=== PATIENT | female | born 1990 | race Caucasian/White ===

== ENCOUNTER 2016-10-30 14:25 | Inpatient (IN) | payer BC ==
[2016-10-30] MEDS ORDERED: Sodium Chloride 0.9% 10 ML Syringe FLUSH PRN (16:31)
[2016-10-30] MEDS ORDERED: Ondansetron 4 MG/2 ML SDV IVPUSH PRN (16:31)
[2016-10-30] MEDS ORDERED: Oxytocin/Lactated Ringers 10 UNIT/1,000 ML BAG IV SCH ×2 (16:45→19:00)
[2016-10-30] MEDS: Lactated Ringers 1,000 ML IV SCH ×3 (19:28→21:48)
[2016-10-30] MEDS ORDERED: diphenhydrAMINE 50 MG/ML SDV IVPUSH PRN (20:27)
[2016-10-30] MEDS ORDERED: ePHEDrine 50 MG/ML SDV IVPUSH PRN (20:27)
[2016-10-30] MEDS ORDERED: fentaNYL 100 MCG/2 ML SDV EPIDUR PRN (20:27)
[2016-10-30] MEDS ORDERED: Bupivacaine/fentaNYL/NS 100 ML Bag EPIDUR SCH (20:30)
--- NOTE | 2016-10-30 20:33 | PCM.LDHP ---
L&D History of Present Illness - General Date of Service: 10/30/16 Admit Problem/Dx: Patient Status Order with Admit Dx/Problem 10/30/16 16:31 Patient Status [ADT] Routine Admission Diagnosis/Problem Admission Diagnosis/Problem 10/30/16 20:21 40-1/7 week intrauterine , spontaneous rupture of membranes, early labor Source of Information: Patient History Limitations: Reports: No Limitations - History of Present Illness Introduction:: History of present illness: Iveth is a 36-year-old 2 para 1001 white female at 40-1/7 weeks gestational age with an GABI of 10/29/2016 who was admitted to labor and delivery with gross unchanged rupture membranes. This occurred this afternoon while she was walking to her car. She is having mild contractions about every 3 minutes. Baby is been active. heart tones are reassuring. 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 her certain last menstrual period started on 01/23/2016. Cycles occur every 28 days, last for 5 days, using no control time conception. Menarche age 11. Previous delivery included a 7 lbs. 4 oz. female infant delivered on 04/01/2012 at 40 weeks gestational age after 24 hours labor. Child's name is Stormy. She had a normal spontaneous vaginal delivery. course patient was seen early in at 17 weeks gestational age. Gestational age was set by her last menstruation of 82,016 but supported by ultrasounds done on 03/12/2016 06/18/2016 end 08/01/2016. She was seen on a fairly regular basis. She had normal fundal height growth. Weight increased from 200.8 pounds to 218 pounds for 20 pound weight gain. Fundal height growth was appropriate. She declined flu vaccination. She desires an epidural in labor and delivery. [place] depression screen was completed on 06/21/2016 and was normal. She is group B strep negative. She had low serum progesterone early in the and was supplemented. She plans to nurse. laboratory testing shows blood to be positive with a negative antibody screen. Platelets at first visit were 331,000. She is rubella immune, RPR is nonreactive. Hepatitis B surface antigen is negative and HIV assay is negative. Chlamydia and gonorrhea assays both negative. Her hemoglobin was 11.9 and second trimester and her platelets are 284. Her one-hour GTT was 109. She is group B strep negative. Allergies: penicillin which causes a rash Medications: 1. tablets one daily 2. Probiotic TB EC 3. Ferrous gluconate tablets one daily Past medical history: 1. Normal spontaneous vaginal delivery x1. 2. Asthma. Past surgical history: Unremarkable Family history: 1 daughter alive and well age for. One sister alive and well except had to get her throat stretched out at age 24. Mother is alive and well. Father's health is unknown. Maternal grandmother is cause unknown. Which was in her 70s. Possible uterine cancer. Maternal grandma father is cause unknown. Maternal grand mother cause and a general. Maternal grandfather living and healthy is somewhat uncertain. No bleeding, , asthma or blood clotting abnormalities noted in the family. Social history patient is single. Significant other's Juarez Carr. 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 She was in [employer]. She denies any significant loss of alcohol drugs or tobacco. Review of systems: Skin-normal HEENT-unremarkable Lungs-normal with no shortness of breath Cardiovascular-no exercise tolerance or chest pain Breasts-unremarkable Abdomen and GI system protruding . No complaints otherwise. Genital-normal Extremities and neurological-unremarkable Physical exam: In general patient is a well-developed well-nourished pleasant field stapes no acute distress. Height is 5 feet 2 pregravid weight was 200.8. Her weight at last visit was 218. Skin is warm and dry without lesions. HEENT, neck and back within normal limits Lungs are clear with good breath sounds in all davalos. Cardiovascular exam shows regular rate without murmur. Breast exam is deferred, having been done at first it was found to be normal Abdomen is tubal with fundal height of 40+ centimeters Genital exam shows normal external genitalia abuse computer pattern. There is normal support and secretions in the vagina. Cervix is 2 cm soft, nontender and without parametrial induration. She does appear to have ruptured membrane as she has gross fluid present. Extremities and neurological exam grossly within normal limits - Related Data Allergies/Adverse Reactions: Allergies Allergy/AdvReac Type Severity Reaction Status Date / Time Penicillins Allergy Rash Verified 10/30/16 16:28 Home Medications: Home Meds Iron 1 tab PO DAILY 10/30/16 [History] PNV95/Ferrous Fumarate/FA [ Tablet] 1 each PO DAILY 10/30/16 [History] Past Medical History Respiratory History: Reports: Asthma BOBBIN STRIPPER History: Reports: Social & Family History - Tobacco Use Smoking Status *Q: Never Smoker Second Hand Smoke Exposure: No - Caffeine Use Caffeine Use: Reports: None - Recreational Drug Use Recreational Drug Use: No H&P Review of Systems - Review of Systems: Review Of Systems: See Below L&D Exam - Exam Exam: See Below - Vital Signs Vital Signs: Last Vital Signs Temp 36.9 C 10/30/16 16:31 Pulse 91 10/30/16 16:31 Resp 20 10/30/16 16:31 BP 132/82 10/30/16 16:31 Pulse Ox Weight: 98.883 kg - Patient Data Lab Results last 24 hrs: Laboratory Results - last 24 hr 10/30/16 10/30/16 Range/Units 14:27 15:51 WBC 13.60 H (3.98-10.04) K/mm3 RBC 4.16 (3.98-5.22) M/mm3 Hgb 11.8 (11.2-15.7) gm/L Hct 35.8 (34.1-44.9) % MCV 86.1 (79.4-94.8) fl MCH 28.4 (25.6-32.2) pg MCHC 33.0 (32.2-35.5) g/dl RDW Std Deviation 48.1 H (36.4-46.3) fL Plt Count 288 (182-369) K/mm3 MPV 9.7 (9.4-12.3) fl Urine Color Yellow (Yellow) Urine Appearance Clear (Clear) Urine pH 7.5 (5.0-8.0) Ur Specific [place] 1.015 (1.005-1.030) Urine Protein Negative (Negative) Urine Glucose (UA) Negative (Negative) Urine Ketones Negative (Negative) Urine Occult Blood Trace-intact H (Negative) Urine Nitrite Negative (Negative) Urine Bilirubin Negative (Negative) Urine Urobilinogen 0.2 (0.2-1.0) Ur Leukocyte Esterase 3+ H (Negative) Result Diagrams: 10/30/16 15:51 Problem List Initiated/Reviewed/Updated: Yes Orders Last 24hrs: Active Orders 24 hr Category Date Time Status Patient Status [ADT] Routine ADT 10/30/16 16:31 Active Activity as Tolerated [RC] PFP Care 10/30/16 16:31 Active Communication Order [RC] ASDIRECTED Care 10/30/16 16:31 Active Heart Tones [RC] ASDIRECTED Care 10/30/16 16:32 Active Notify Provider [RC] PFP Care 10/30/16 16:31 Active Notify Provider [RC] PRN Care 10/30/16 16:31 Active Peripheral IV Care [RC] . DIRECTED Care 10/30/16 16:32 Active Vital Signs [RC] PER UNIT ROUTINE Care 10/30/16 16:31 Active Clear Liquid Diet [DIET] Diet 10/30/16 Dinner Active CULTURE URINE [RM] Routine Lab 10/30/16 14:27 Received Lactated Ringers [Ringers, Lactated] 1,000 ml Med 10/30/16 16:45 Active IV ASDIRECTED Ondansetron [Zofran] Med 10/30/16 16:31 Active 4 mg IVPUSH Q4H PRN Oxytocin/Lactated Ringers [Pitocin in LR 10 Units/1,000 Med 10/30/16 16:45 Active ML] 10 unit in 1,000 ml IV TITRATE Oxytocin/Lactated Ringers [Pitocin in LR 10 Units/1,000 Med 10/30/16 19:00 Active ML] 10 unit in 1,000 ml IV TITRATE Sodium Chloride 0.9% [Saline Flush] Med 10/30/16 16:31 Active 10 ml FLUSH ASDIRECTED PRN Electronic Heart Tones Ext w TOCO [WOMSER] Oth 10/30/16 16:31 Ordered Routine Electronic Heart Tones Internal [WOMSER] Per Unit Oth 10/30/16 16:31 Ordered Routine Peripheral IV Insertion Adult [OM.PC] Routine Oth 10/30/16 16:31 Ordered Resuscitation Status Routine Resus Stat 10/30/16 16:31 Ordered Medication Orders Lactated Ringer's (Ringers, Lactated) 1,000 mls @ 100 mls/hr IV ASDIRECTED JR Last Admin: 10/30/16 19:28 Dose: 100 mls/hr Oxytocin/Lactated Ringer's (Pitocin In Lr 10 Units/1,000 Ml) 10 unit in 1,000 mls @ 500 mls/hr IV TITRATE JR Oxytocin/Lactated Ringer's (Pitocin In Lr 10 Units/1,000 Ml) 10 unit in 1,000 mls @ 12 mls/hr IV TITRATE JR; 2 MUNITS/MIN PRN Reason: Protocol Last Admin: 10/30/16 19:28 Dose: 2 munits/min, 12 mls/hr Ondansetron HCl (Zofran) 4 mg IVPUSH Q4H PRN PRN Reason: Nausea/Vomiting Sodium Chloride (Saline Flush) 10 ml FLUSH ASDIRECTED PRN PRN Reason: Keep Vein Open Assessment/Plan Comment:: Assessment: 1. 40-1/7 week intrauterine , spontaneous rupture membranes, early labor 2. Group B strep screen negative 3. Patient plans to nurse 4. Patient desires epidural in labor and delivery. Plan: 1. Anticipate normal spontaneous vaginal repair will augment as indicated with Pitocin 2. Epidural when necessary for patient's pain control
--- NOTE | 2016-10-30 21:07 | PCM.PREANE ---
Preanesthetic Assessment - Anesthesia/Transfusion/Family Hx Anesthesia History: Prior Anesthesia Without Reaction Family History of Anesthesia Reaction: No Transfusion History: No Prior Transfusion(s) - Review of Systems General: No Symptoms Pulmonary: No Symptoms Cardiovascular: No Symptoms Gastrointestinal: No symptoms Neurological: No Symptoms Other: Reports: None - Physical Assessment Pulse: 91 O2 Sat by Pulse Oximetry: 97 Respiratory Rate: 20 Blood Pressure: 132/82 Temperature: 36.9 C Vital Signs: Last Vital Signs Temp 36.9 C 10/30/16 16:31 Pulse 91 10/30/16 16:31 Resp 20 10/30/16 16:31 BP 132/82 10/30/16 16:31 Pulse Ox Height: 1.57 m Weight: 98.883 kg ASA Class: 2 Mental Status: Alert & Oriented x3 Airway Class: Mallampati = 1 Dentition: Reports: Normal Dentition Thyro-Mental Finger Breadths: 3 Mouth Opening Finger Breadths: 3 ROM/Head Extension: Full Lungs: Clear to auscultation, Normal respiratory effort Cardiovascular: Regular Rate, Regular Rhythm, No Murmurs - Lab Values: Laboratory Last Values WBC 13.60 K/mm3 (3.98-10.04) H 10/30/16 15:51 RBC 4.16 M/mm3 (3.98-5.22) 10/30/16 15:51 Hgb 11.8 gm/L (11.2-15.7) 10/30/16 15:51 Hct 35.8 % (34.1-44.9) 10/30/16 15:51 MCV 86.1 fl (79.4-94.8) 10/30/16 15:51 MCH 28.4 pg (25.6-32.2) 10/30/16 15:51 MCHC 33.0 g/dl (32.2-35.5) 10/30/16 15:51 RDW Std Deviation 48.1 fL (36.4-46.3) H 10/30/16 15:51 Plt Count 288 K/mm3 (182-369) 10/30/16 15:51 MPV 9.7 fl (9.4-12.3) 10/30/16 15:51 Urine Color Yellow (Yellow) 10/30/16 14:27 Urine Appearance Clear (Clear) 10/30/16 14:27 Urine pH 7.5 (5.0-8.0) 10/30/16 14:27 Ur Specific [place] 1.015 (1.005-1.030) 10/30/16 14:27 Urine Protein Negative (Negative) 10/30/16 14:27 Urine Glucose (UA) Negative (Negative) 10/30/16 14:27 Urine Ketones Negative (Negative) 10/30/16 14:27 Urine Occult Blood Trace-intact (Negative) H 10/30/16 14:27 Urine Nitrite Negative (Negative) 10/30/16 14:27 Urine Bilirubin Negative (Negative) 10/30/16 14:27 Urine Urobilinogen 0.2 (0.2-1.0) 10/30/16 14:27 Ur Leukocyte Esterase 3+ (Negative) H 10/30/16 14:27 - Allergies Allergies/Adverse Reactions: Allergies Allergy/AdvReac Type Severity Reaction Status Date / Time Penicillins Allergy Rash Verified 10/30/16 16:28 - Anesthesia Plan Pre-Op Medication Ordered: None - Acknowledgements Anesthesia Type Planned: Epidural Pt an Appropriate Candidate for the Planned Anesthesia: Yes Alternatives and Risks of Anesthesia Discussed w Pt/Guardian: Yes Pt/Guardian Understands and Agrees with Anesthesia Plan: Yes PreAnesthesia Questionnaire Respiratory History: Reports: Asthma Gastrointestinal History: Reports: GERD 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 USE Smoking Status *Q: Never Smoker Second Hand Smoke Exposure: No Recreational Drug Use History: No - HOME MEDS Home Medications: Home Meds Iron 1 tab PO DAILY 10/30/16 [History] PNV95/Ferrous Fumarate/FA [ Tablet] 1 each PO DAILY 10/30/16 [History] - CURRENT (IN HOUSE) MEDS Current Meds: Current Medications Diphenhydramine HCl (Benadryl) 25 mg IVPUSH Q6H PRN PRN Reason: Itching Ephedrine Sulfate (Ephedrine Sulfate) 5 mg IVPUSH ASDIRECTED PRN PRN Reason: HYPOTENTSION Fentanyl (Sublimaze) 100 mcg EPIDUR Q3H PRN PRN Reason: PAIN Last Admin: 10/30/16 20:57 Dose: 100 mcg Fentanyl/Bupivacaine HCl (Fentanyl/Bupivacaine/Ns 2 Mcg-0.125% 100 Ml) 100 ml EPIDUR ASDIRECTED JR Last Admin: 05/16/17 20:58 Dose: 100 ml Lactated Ringer's (Ringers, Lactated) 1,000 mls @ 100 mls/hr IV ASDIRECTED JR Last Admin: 10/30/16 19:28 Dose: 100 mls/hr Oxytocin/Lactated Ringer's (Pitocin In Lr 10 Units/1,000 Ml) 10 unit in 1,000 mls @ 500 mls/hr IV TITRATE JR Oxytocin/Lactated Ringer's (Pitocin In Lr 10 Units/1,000 Ml) 10 unit in 1,000 mls @ 12 mls/hr IV TITRATE JR; 2 MUNITS/MIN PRN Reason: Protocol Last Titration: 10/30/16 21:03 Dose: 4 munits/min, 24 mls/hr Ondansetron HCl (Zofran) 4 mg IVPUSH Q4H PRN PRN Reason: Nausea/Vomiting Sodium Chloride (Saline Flush) 10 ml FLUSH ASDIRECTED PRN PRN Reason: Keep Vein Open
[2016-10-30] MEDS ORDERED: Bupivacaine 0.25% 10 ML SDV ONE (22:22)
--- NOTE | 2016-10-31 00:42 | PCM.SN ---
- Free Text/Narrative Note: Crystals a 26-year-old 2 now para 2002 white female who was admitted on the afternoon of 10/30/2016 with spontaneous ruptured membranes at 41-1/7 weeks gestational age. She progressed into labor and through the course of the evening was supplemented somewhat with Pitocin up to 2 milliunits per minute. With this she achieved complete cervical dilation by approximately 2300 hours. She pushed for approximately 75 minutes and delivered a viable, garcia, 3, 450 g (7 pound-9.7 ounce) male in an occiput anterior position at 0020 hours on 10/31/2016. The baby at Apgars of 9 and 9 and had a length of 21.5 inches. Pitocin was administered after the baby delivered. Cord blood was obtained. It should be noted her is nuchal cord x1 which was easily reduced over the baby's head. Epidural was used for analgesia. Placenta delivered intact and appeared normal and complete. There was a first-degree perineal laceration was repaired with a short running suture of 3-0 Monocryl. This blood loss was 200 cc. Patient plans to nurse. Condition good.
[2016-10-31] MEDS ORDERED: Lanolin 100% Cream 7 GM Tube TOP PRN (00:45)
[2016-10-31] MEDS ORDERED: Witch Hazel Medicated Pads 100/Jar TOP PRN (00:45)
[2016-10-31] MEDS ORDERED: Docusate Sodium 100 MG Cap PO PRN (00:45)
[2016-10-31] MEDS ORDERED: Benzocaine/Menthol 20%-0.5% Spray 56 GM Canister TOP PRN (00:45)
[2016-10-31] MEDS ORDERED: Acetaminophen 325 MG Tab PO PRN (00:45)
[2016-10-31] MEDS: Ibuprofen 600 MG Tab PO PRN ×3 (01:46→17:22)
--- NOTE | 2016-10-31 07:20 | PCM48HPAN ---
Post Anesthesia Note - EVALUATION WITHIN 48HRS OF ANESTHETIC Vital Signs in Normal Range: Yes Patient Participated in Evaluation: Yes Respiratory Function Stable: Yes Airway Patent: Yes Cardiovascular Function Stable: Yes Hydration Status Stable: Yes Pain Control Satisfactory: Yes Nausea and Vomiting Control Satisfactory: Yes Mental Status Recovered: Yes
[2016-10-31] MEDS: Prenatal Multivitamin with Calcium/Folic Acid/Iron Tab PO SCH ×2 (07:54→09:53)
--- NOTE | 2016-10-31 11:42 | PCM.SN ---
- Free Text/Narrative Note: Patient's date of delivery. She is doing well. Voiding well, ambulating without problems. She has minimal discomfort. She is nursing without concerns. Vital signs are stable. The patient is afebrile. CBC for car Abdomen soft, nontender. Uterus is just below the umbilicus. Legs nontender Assessment: The of delivery-doing well Plan: Routine care. Encouraged nursing.
[2016-11-01] MEDS: Ibuprofen 600 MG Tab PO PRN (02:53)
[2016-11-01 03:51] VITALS: BP 109/64
[2016-11-01] MEDS: Prenatal Multivitamin with Calcium/Folic Acid/Iron Tab PO SCH (08:23)
--- NOTE | 2016-11-01 10:56 | PCM.DCSUM1 ---
Discharge Summary - Hospital Course Free Text/Narrative:: Iveth is a 26-year-old 2 now para 2002 white female who was admitted on the afternoon of 10/30/2016 with spontaneous ruptured membranes at 41-1/7 weeks gestational age. She progressed into labor and through the course of the evening was supplemented somewhat with Pitocin up to 2 milliunits per minute. With this she achieved complete cervical dilation by approximately 2300 hours. She pushed for approximately 75 minutes and delivered a viable, garcia, 3, 450 g (7 pound-9.7 ounce) male in an occiput anterior position at 0020 hours on 10/31/2016. The baby at Apgars of 9 and 9 and had a length of 21.5 inches. Pitocin was administered after the baby delivered. Cord blood was obtained. It should be noted her is nuchal cord x1 which was easily reduced over the baby's head. Epidural was used for analgesia. Placenta delivered intact and appeared normal and complete. There was a first-degree perineal laceration was repaired with a short running suture of 3-0 Monocryl. This blood loss was 200 cc. Patient plans to nurse and has been doing so without problems. she has done well. She is ambulating well, has minimal lochia, is voiding without concerns. The only concern she has is that she has a mild headache which is by frontal lobe in location. Not classical for a spinal headache. Her vital signs are stable. She is afebrile. Patient is desiring discharge. - Discharge Data Discharge Date: 11/01/16 Discharge Disposition: Home, Self-Care 01 Condition: Good - Patient Instructions Diet: Regular Diet as Tolerated (Nursing diet increase calories and calcium as directed.) Activity: As Tolerated (No intercourse or tampons until bleeding resolves.) Driving: May Drive Today Showering/Bathing: May Shower (Or take a bath) Notify Provider of: Fever, Increased Pain, Swelling and Redness, Nausea and/or Vomiting - Discharge Plan Home Medications: Home Meds Iron 1 tab PO DAILY 10/30/16 [History] PNV95/Ferrous Fumarate/FA [ Tablet] 1 each PO DAILY 10/30/16 [History] Ibuprofen [IJD: Ibuprofen] 600 mg PO Q4H PRN #30 tablet 11/01/16 [Rx] Referrals: Fernando Sharp MD [Primary Care Provider] - (Return to clinic-Dr. Sharp-6 weeks-[facility].) - Discharge Summary/Plan Comment DC Time >30 min.: Yes Discharge Summary/Plan Comment: Discharge instructions: 1. Discharge Monocryl 2. Regular, high-fiber, nursing diet with increased calcium and calories. 3. Routine recommendations given concern diet, activity and followup. 4. precautions given concern increased pain, bleeding, temperature, signs/ symptoms of DVT/PE 5. Return to clinic to Dr. Sharp-[facility] in 6 weeks. Diagnosis: 40 week intrauterine -delivered Condition: Good - Patient Data Vitals - Most Recent: Last Vital Signs Temp 36.8 C 11/01/16 03:34 Pulse 77 11/01/16 03:34 Resp 18 11/01/16 03:34 BP 109/64 11/01/16 03:34 Pulse Ox 94 L 11/01/16 03:34 Weight - Most Recent: 98.883 kg ANIVAL Results - Last 24 hrs: Microbiology 10/30/16 14:27 Urine Culture - Final Urine, Clean Catch MIXED ASHLEY SUGGESTIVE OF CONTAMINATION. Med Orders - Current: Current Medications Acetaminophen (Tylenol) 650 mg PO Q4H PRN PRN Reason: mild pain or fever Benzocaine/Menthol (Dermoplast Pain Relief [place]) 0 gm TOP ASDIRECTED PRN PRN Reason: Perineal Comfort Measure Last Admin: 10/31/16 01:46 Dose: 1 applic Docusate Sodium (Colace) 100 mg PO BID PRN PRN Reason: Constipation Emollient Ointment (Lansinoh Hpa) 0 gm TOP ASDIRECTED PRN PRN Reason: Sore Nipples Ibuprofen (Motrin) 600 mg PO Q4H PRN PRN Reason: Mild pain or fever Last Admin: 11/01/16 02:53 Dose: 600 mg Prenat Multivit/Dickenson/Iron/Folic Ac ( Plus Iron) 1 each PO DAILY JR Last Admin: 11/01/16 08:23 Dose: 1 each Witch Oanh (Tucks) 1 pad TOP ASDIRECTED PRN PRN Reason: Hemorrhoid pain Last Admin: 10/31/16 01:46 Dose: 1 applic Discontinued Medications Diphenhydramine HCl (Benadryl) 25 mg IVPUSH Q6H PRN PRN Reason: Itching Ephedrine Sulfate (Ephedrine Sulfate) 5 mg IVPUSH ASDIRECTED PRN PRN Reason: HYPOTENTSION Fentanyl (Sublimaze) 100 mcg EPIDUR Q3H PRN PRN Reason: PAIN Last Admin: 10/30/16 20:57 Dose: 100 mcg Fentanyl/Bupivacaine HCl (Fentanyl/Bupivacaine/Ns 2 Mcg-0.125% 100 Ml) 100 ml EPIDUR ASDIRECTED JR Last Admin: 10/30/16 20:58 Dose: 100 ml Lactated Ringer's (Ringers, Lactated) 1,000 mls @ 100 mls/hr IV ASDIRECTED JR Last Admin: 10/30/16 21:48 Dose: 100 mls/hr Oxytocin/Lactated Ringer's (Pitocin In Lr 10 Units/1,000 Ml) 10 unit in 1,000 mls @ 500 mls/hr IV TITRATE JR Oxytocin/Lactated Ringer's (Pitocin In Lr 10 Units/1,000 Ml) 10 unit in 1,000 mls @ 12 mls/hr IV TITRATE JR; 2 MUNITS/MIN PRN Reason: Protocol Last Titration: 10/30/16 23:43 Dose: 4 munits/min, 24 mls/hr Ondansetron HCl (Zofran) 4 mg IVPUSH Q4H PRN PRN Reason: Nausea/Vomiting Sodium Chloride (Saline Flush) 10 ml FLUSH ASDIRECTED PRN PRN Reason: Keep Vein Open *Q Meaningful Use (DIS) - VTE *Q VTE Criteria *Q: - Stroke *Q Stroke Criteria *Q: - AMI *Q AMI Criteria *Q:
== END 2016-11-01 11:20 | disposition home or self-care (01) | DRG 560 ==
LOC: JD.OBCHECK 14:25 → JD.OB 15:34 → JD.OBCHECK 16:30 → INTOOBSV 16:31 → UNDOADMOB 16:31 → JD.OB 16:31 → OBSVTOIN 16:31 → JD.OB 10-31 00:20 → UNDODISIN 11-01 11:20 → JD.OB 11-29 14:23
PROVIDERS: ADMIT Obstetrics & Gynecology; ATTEND Obstetrics & Gynecology
PROC: 10E0XZZ Delivery of Products of Conception, External Approach (ICD-10-PCS; principal; 2016-10-30)
PROC: 0HQ9XZZ Repair Perineum Skin, External Approach (ICD-10-PCS; 2016-10-30)
PROC: 00HU33Z Insertion of Infusion Device into Spinal Canal, Percutaneous Approach (ICD-10-PCS; 2016-10-30)
PROC: 3E0R3CZ (ICD-10-PCS; 2016-10-30)
DX: O42.02 Full-term premature rupture of membranes, onset of labor within 24 hours of rupture (principal); O70.0 First degree perineal laceration during delivery; O69.81X0 Labor and delivery complicated by cord around neck, without compression, not applicable or unspecified; Z3A.40 40 weeks gestation of pregnancy; Z37.0 Single live birth; Z88.0 Allergy status to penicillin
CPT/HCPCS: 01967; 36415; 81003; 85025; 85027; 87086; A9270-GY; J2590; J3010; J7120

== ENCOUNTER 2016-11-02 21:04 | Emergency (ER) | payer BC ==
[2016-11-02 21:18] VITALS: BP 128/70
[2016-11-02] MEDS ORDERED: Acetaminophen 325 MG Tab PO ONE (22:06)
[2016-11-02] MEDS ORDERED: Sodium Chloride 0.9% 1,000 ML IV ONE (22:11)
[2016-11-02] MEDS ORDERED: Sodium Chloride 0.9% 10 ML Syringe FLUSH PRN (22:11)
--- NOTE | 2016-11-02 22:22 | EDM.PDOC ---
ED HPI GENERAL MEDICAL PROBLEM - General Chief Complaint: Headache Stated Complaint: HEADACHE Time Seen by Provider: 11/02/16 21:55 Source of Information: Reports: Patient History Limitations: Reports: No Limitations - History of Present Illness INITIAL COMMENTS - FREE TEXT/NARRATIVE: Patient is a 26-year-old female presents to the ED complaining of severe throbbing generalized headache. Patient recently delivered a baby vaginally with epidural with no complications and was discharged yesterday. Patient states yesterday the headaches started approximately 10 AM just prior to discharge from the hospital. States headache has remained constant since discharge with noted increased sensitivity to light and increased pain with standing/sitting upright. Patient denies N/V, Vision changes, weakness, n/t, fever/chills, sob, cp, stiff neck, dysuria, abdominal pain, or any additional complaints. Patient has taken ibuprofen with no improvement. Onset: Gradual Duration: Constant Location: Reports: Head Quality: Reports: Throbbing Severity: Severe Improves with: Reports: None Worsens with: Reports: Other (See HPI) Context: Reports: Other (vaginally delivered baby 2 days ago) Associated Symptoms: Reports: No Other Symptoms Treatments GRAPHIC COORDINATOR: Reports: NSAIDS Headache Pain Score (Numeric/FACES): 10 - Related Data Allergies Allergy/AdvReac Type Severity Reaction Status Date / Time Penicillins Allergy Rash Verified 10/30/16 16:28 Home Meds: Home Meds Iron 1 tab PO DAILY 10/30/16 [History] PNV95/Ferrous Fumarate/FA [ Tablet] 1 each PO DAILY 10/30/16 [History] Ibuprofen [IJD: Ibuprofen] 600 mg PO Q4H PRN #30 tablet 11/01/16 [Rx] Lactobacillus Combination No.4 [Probiotic] 1 cap PO DAILY 11/02/16 [History] Past Medical History Respiratory History: Reports: Asthma Gastrointestinal History: Reports: GERD 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 AND 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 History: Reports: - Past Surgical History HEENT Surgical History: Reports: Oral Surgery Female Surgical History: Reports: Other (See Below) Other Female Surgeries/Procedures: 2 Social & Family History - Tobacco Use Smoking Status *Q: Never Smoker Second Hand Smoke Exposure: No - Caffeine Use Caffeine Use: Reports: Coffee - Recreational Drug Use Recreational Drug Use: No ED ROS GENERAL - Review of Systems Review Of Systems: See Below Constitutional: Denies: Fever, Chills, Decreased Appetite HEENT: Denies: Ear Pain, Vision Change Respiratory: Denies: Shortness of Breath, Cough, Sputum Cardiovascular: Denies: Chest Pain, Dyspnea on Exertion GI/Abdominal: Denies: Abdominal Pain, Constipation, Diarrhea, Nausea, Vomiting Musculoskeletal: Denies: Neck Pain Neurological: Reports: Headache. Denies: Dizziness, Numbness, Tingling, Difficulty Walking, Weakness - Physical Exam Exam: See Below Exam Limited By: No Limitations General Appearance: Alert, WD/WN, No Apparent Distress, Other (lying in a dark room) Eye Exam: Bilateral Eye: EOMI, PERRL Ears: Hearing Grossly Normal Nose: Normal Inspection Throat/Mouth: Normal Voice, No Airway Compromise Head Exam: Atraumatic, Normocephalic Neck: Normal Inspection, Supple, Non-Tender, Full Range of Motion Respiratory/Chest: No Respiratory Distress, Normal Breath Sounds Cardiovascular: Normal Peripheral Pulses, Regular Rate, Rhythm GI/Abdominal: Normal Bowel Sounds, Soft, Non-Tender Neuro Exam (Abbreviated): Alert, Oriented, CN II-XII Intact, Normal Cognition, Normal Gait, No Motor/Sensory Deficits, Other (cerebellar function intact) Back Exam: Normal Inspection, Full Range of Motion. No: Paraspinal Tenderness, Vertebral Tenderness Extremities: Normal Inspection, Normal Range of Motion, Non-Tender Psychiatric: Normal Affect, Normal Mood Skin Exam: Warm, Dry, Intact Comments: Headache worsens with chin to chest, sitting up, and standing. Course - Vital Signs Last Recorded V/S: Last Vital Signs Temp 97.7 F 11/02/16 21:17 Pulse 79 11/02/16 21:17 Resp 20 11/02/16 21:17 BP 128/70 11/02/16 21:17 Pulse Ox 95 11/02/16 21:17 - Orders/Labs/Meds Orders: Active Orders 24 hr Category Date Time Status Peripheral IV Care [RC] . DIRECTED Care 11/02/16 22:11 Active Sodium Chloride 0.9% [Saline Flush] Med 11/02/16 22:11 Active 10 ml FLUSH ASDIRECTED PRN Peripheral IV Insertion Adult [OM.PC] Routine Oth 11/02/16 22:11 Ordered Medication Orders Sodium Chloride (Saline Flush) 10 ml FLUSH ASDIRECTED PRN PRN Reason: Keep Vein Open Last Admin: 11/02/16 22:34 Dose: 10 ml Meds: Medications Generic Name Dose Route Start Last Admin Trade Name Gene PRN Reason Stop Dose Admin Sodium Chloride 10 ml 11/02/16 22:11 11/02/16 22:34 Saline Flush FLUSH 10 ml ASDIRECTED PRN Administration Keep Vein Open Discontinued Medications Generic Name Dose Route Start Last Admin Trade Name Gene PRN Reason Stop Dose Admin Acetaminophen 650 mg 11/02/16 22:06 11/02/16 22:34 Tylenol PO 11/02/16 22:07 650 mg NOW ONE Administration Sodium Chloride 1,000 mls @ 999 mls/hr 11/02/16 22:11 11/02/16 22:34 Normal Saline IV 11/02/16 23:11 999 mls/hr ONETIME ONE Administration Ketorolac Tromethamine 30 mg 11/02/16 23:15 11/02/16 23:19 Toradol IVPUSH 11/02/16 23:16 30 mg ONETIME ONE Administration - Re-Assessments/Exams Free Text/Narrative Re-Assessment/Exam: Ordered tylenol 650mg PO and peripheral IV with NS bolus. 2215 Spoke with cork insulation setter MORTEZA Wayne. Requests NS 1000ml bolus. Will be in to perform blood patch. 11/02/16 23:15 Blood patch completed. Ordered toradal 30mg IV. 11/03/16 00:10 Per nursing staff headache has slightly improved. She is ready to be discharged home. Departure - Departure Time of Disposition: 00:12 Disposition: Home, Self-Care 01 Condition: good Clinical Impression: Epidural anesthesia-induced headache during labor and delivery - Discharge Information Referrals: Fernando Sharp MD [Primary Care Provider] - Forms: ED Department Discharge Additional Instructions: Blood patch performed while in the E.D. Please follow instructions explained by Myrna PRO. Take tylenol and ibuprofen in alternating fashion for pain. Push the fluids. Refrain from any heavy lifting or strenuous activities. Followup with Dr. Sharp as needed. Return to the E.D. for any new or worsening symptoms including: fever/chills, vision changes, and/or stiff neck. - My Orders Last 24 Hours: My Active Orders 11/02/16 22:11 Peripheral IV Care [RC] . DIRECTED Sodium Chloride 0.9% [Saline Flush] 10 ml FLUSH ASDIRECTED PRN Peripheral IV Insertion Adult [OM.PC] Routine - Assessment/Plan Last 24 Hours: My Active Orders 11/02/16 22:11 Peripheral IV Care [RC] . DIRECTED Sodium Chloride 0.9% [Saline Flush] 10 ml FLUSH ASDIRECTED PRN Peripheral IV Insertion Adult [OM.PC] Routine
[2016-11-02] MEDS ORDERED: Ketorolac 30 MG/ML SDV IVPUSH ONE (23:15)
--- NOTE | 2016-11-02 23:32 | PCM.SN ---
- Free Text/Narrative Note: 11/02/16 Start: 2245 Stop: 2330 Time Out: 2250 Anesthesia requested by BLANK Juan for a blood patch for a spinal headache that presented on the 11/01/16. Patient states H/A is 6/10, worsens when standing up, and light sensitivity also noted. 1 Liter fluid bolus infusing upon arrival. Chart reviewed, allergies reviewed, medications reviewed, and adequate platelets 240,000 also noted. Blood patch risk/benefits and procedural details discussed with patient, consent obtained. Under sterile technique, mask/cap worn, back prepped times 3 betadine swabs, sterile drape placed. L3-L4 localized with 1% lidocaine 17 gauge tuohy needle advanced with loss of resistance noted with air. 20gauge right antecubital angio placed per RN, and 20ml's of blood obtained. 20ml's of autologous blood injected into epidural needle with increments of 10ml 's. Tordal 30mg IV given [id number] 1754: Patient states H/A is 0/10.
== END 2016-11-03 00:19 | disposition home or self-care (01) ==
LOC: JD.ED 21:04
DX: O89.4 Spinal and epidural anesthesia-induced headache during the puerperium (principal); J45.909 Unspecified asthma, uncomplicated; K21.9 Gastro-esophageal reflux disease without esophagitis; Z88.0 Allergy status to penicillin; Z79.899 Other long term (current) drug therapy
CPT/HCPCS: 62273; 96361; 96374; 99284; A9270; J1885; J7040; J7050

== ENCOUNTER 2017-12-24 19:01 | Inpatient (IN) | payer BC ==
[2017-12-24] MEDS: Lactated Ringers 1,000 ML ONE ×2 (19:56→20:35)
[2017-12-24] MEDS ORDERED: Metoclopramide 10 MG/2 ML SDV ONE (20:14)
[2017-12-24] MEDS ORDERED: Citric Acid/Sodium Citrate Solution 30 ML Cup ONE (20:14)
[2017-12-24] MEDS ORDERED: Morphine PF 10 MG/10 ML SDV ONE (20:16)
[2017-12-24] MEDS ORDERED: Bupivacaine 0.75%/D5W 2 ML Amp ONE (20:17)
[2017-12-24] MEDS ORDERED: Ondansetron 4 MG/2 ML SDV ONE (20:17)
[2017-12-24] MEDS ORDERED: Oxytocin 10 Units/1 ML SDV ONE (20:17)
[2017-12-24] MEDS ORDERED: ceFAZolin 2 GM in Premix Bag 1 BAG IV ONE (20:18)
[2017-12-24] MEDS ORDERED: Metoclopramide 10 MG/2 ML SDV IVPUSH ONE (20:18)
[2017-12-24] MEDS ORDERED: Sodium Chloride 0.9% 10 ML Syringe FLUSH PRN (20:18)
[2017-12-24] MEDS ORDERED: Citric Acid/Sodium Citrate Solution 30 ML Cup PO ONE (20:18)
[2017-12-24] MEDS ORDERED: Lactated Ringers 1,000 ML IV SCH (20:30)
--- NOTE | 2017-12-24 20:30 | PCM.LDHP ---
L&D History of Present Illness - General Date of Service: 12/24/17 Admit Problem/Dx: Admission Diagnosis/Problem Admission Diagnosis/Problem 12/24/17 20:18 40-1/7 week intrauterine , spontaneous rupture membranes, breech presentation Source of Information: Patient History Limitations: Reports: No Limitations - History of Present Illness Introduction:: History of present illness:Total is a 27-year-old 3 para 2001 white female who is admitted on the evening of 12/24/2017 with reported rupture membranes at 1900 hrs. Amniotic fluid is clear. Patient is marga minimally. She is evaluated in labor and delivery and found to have a nayan breech presentation by clinical exam confirmed with bedside ultrasound. Head is in the right upper quadrant. Discussion is held with patient concerning routes of delivery, risks and benefits and at this time primary section is elected as the mode of delivery. Baby has been active. ARMATURE WINDER REPAIR history 3 para 2001. GABI is 7 19,018 is based upon a certain last menstrual period starting 03/18/2017 supported by 2 ultrasounds with first one being done at 11-1/7 weeks and second one being done at 20-5/7 weeks. Patient had menarche at approximately age 11. Cycles are monthly. Last menstrual cycle was definite using no control time conception. Previous obstetric history includes the followin. Female born 04/01/2012 at 40 weeks gestational age after 24 hours of labor7 lbs. 4 oz.normal spontaneous vaginal delivery in [place]. Child's name is Stormy 2. Male born 10/31/2016 at 40 weeks gestational age after 8 hours of labor 7 lbs. 10 oz. Born via normal spontaneous vaginal delivery in [facility]. Child's name is Chacorta. course has been relatively uneventful. She does have a history of asthma. She declined flu shot. [place] depression screening score was 7 on a scale 30 on 08/12/2017. Her group B strep screen was negative. Her quad screen was negative on 07/23/2017. T dap was administered on 10/23/2017. The patient plans to breast-feed. Prenatally the patient was first seen for care on 06/18/2017 at 13 weeks and 1 day. She had had an ultrasound at 11 weeks which supported her GABI. Patient's weight gain was from 195 2 217 pounds 22+ pound weight gain. Fundal height growth was appropriate. laboratory testing: Blood is A+ with a negative antibody screen. Initial hemoglobin was 13.7 and platelets are 365,000. Rubella titer showed immunity. RPR is nonreactive. Urine culture was unremarkable. Hepatitis B surface antigen and HIV assays were both negative. Chlamydia and gonorrhea assays both negative. Second trimester laboratory testing showed hemoglobin of 12.5 g/dL and platelets are 275,000. Diabetic screening test was normal at 107. Group B strep screen was negative. Allergies: penicillin which causes a rash. Did any problems with cephalosporins that she is aware of. Medications: 1. vitamins 1 daily 2. Probiotic TBEC Past medical history: Normal spontaneous vaginal delivery 2 Past surgical history unremarkable Family history: One daughter alive and well age 5. One sister alive and well with the exception she had to get her throat "stretched" at age 24. Mother is alive and well. Father's history is unknown but she thinks he is healthy. Maternal grandmother causes unknown in her 70s. Possible uterine cancer. Maternal grandfather causes unknown in his 70s. Paternal grandmother and paternal grandfather living health is uncertain. No anesthesia, bleeding, blood clotting problems noted in the family. Social history: Patient is . is Juarez Carr. They live in [place]. She is a hcrh-ex-mezq mom. She does not use any significant loss of alcohol drugs or tobacco. Review of systems: In general patient is doing well. Is having some mild contractions. Baby has been active. Skin: Negative Cardiovascular: No chest pain or exercise intolerance Respiratory: No shortness of breath or infectious symptoms Breasts: Changes associated with . Patient does plan to breast-feed. GI: Negative : Changes associated with including increased fundal height. Musculoskeletal: Occasional swelling lower extremities on occasion. Neurological: Negative Physical exam: On last evaluation in clinic patient's blood pressure is 122/68, weight was 217.6, heart rate was 144. Her pregravid weight was 195. Height is 5 feet 2. Pregravid BMI was 36.2. In general patient is well-developed, well-nourished, pleasant female stated age in no Distress. Skin is warm and dry without lesions. HEENT, neck and back within normal limits. Cardiovascular exam shows regular and rhythm without murmurs. Breast exam is deferred having been done at first visit found to be normal. Abdomen is protuberant with last fundal height in clinic at 41.5 cm. Cervical exam on last evaluation in clinic was 2 cm, 70% effaced, -3 station, very soft consistency, posterior, cephalic presentation. Extremities: Within normal limits Neurological: Grossly normal - Related Data Allergies/Adverse Reactions: Allergies Allergy/AdvReac Type Severity Reaction Status Date / Time Penicillins Allergy Rash Verified 10/30/16 16:28 Home Medications: Home Meds Iron 1 tab PO DAILY 10/30/16 [History] PNV95/Ferrous Fumarate/FA [ Tablet] 1 each PO DAILY 10/30/16 [History] Ibuprofen [IJD: Ibuprofen] 600 mg PO Q4H PRN #30 tablet 11/01/16 [Rx] Lactobacillus Combination No.4 [Probiotic] 1 cap PO DAILY 11/02/16 [History] Past Medical History Respiratory History: Reports: Asthma Gastrointestinal History: Reports: GERD ARMATURE WINDER REPAIR History: Reports: - Past Surgical History HEENT Surgical History: Reports: Oral Surgery Female Surgical History: Reports: Other (See Below) Other Female Surgeries/Procedures: 2 Social & Family History - Caffeine Use Caffeine Use: Reports: Coffee H&P Review of Systems - Review of Systems: Review Of Systems: See Below L&D Exam - Exam Exam: See Below - Vital Signs Weight: 98.883 kg Problem List Initiated/Reviewed/Updated: Yes Assessment/Plan Comment:: Assessment: 1.40-1/7 week intrauterine , spontaneous rupture membranes, nayan breech presentation 2. History of previous vaginal delivery 2 3. Group B strep screen negative 4. Rubella immune. 5. Patient plans to breast-feed Plan: 1. Primary lower uterine segment transverse section to [place] skin incision. The procedure, risks, benefits, alternatives of care including attempt at version and attempt at vaginal breech delivery, the risks, benefits etc. discussed in detail with patient and her . They wish to proceed with a section. Consent has been signed. 2. Prophylaxis with SCDs 3. Infection prophylaxis Ancef 2 g IV preop. We'll give her a test dose of Ancef prior to full dose. 4. DVT prophylaxis with SCDs 5. Dr. Mack to be present for pediatric coverage at the time of delivery
[2017-12-24] MEDS ORDERED: Bupivacaine 0.5% 30 ML SDV ONE (20:48)
--- NOTE | 2017-12-24 20:54 | PCM.PREANE ---
Preanesthetic Assessment - Procedure Proposed Procedure: Urgent - Anesthesia/Transfusion/Family Hx Anesthesia History: Prior Anesthesia Without Reaction (patient did have a PDPH with her last last year) Family History of Anesthesia Reaction: No Transfusion History: No Prior Transfusion(s) - Review of Systems General: No Symptoms Pulmonary: Other (asthma-does not use an inhaler ) Cardiovascular: No Symptoms Gastrointestinal: No Symptoms Neurological: No Symptoms Other: Reports: None - Physical Assessment NPO Status Date: 12/24/17 NPO Status Time: 16:00 O2 Sat by Pulse Oximetry: 97 Respiratory Rate: 16 Vital Signs: Last Vital Signs Temp 36.8 C 12/24/17 20:18 Pulse 77 12/24/17 20:18 Resp 16 12/24/17 20:18 BP 131/78 12/24/17 20:18 Pulse Ox 97 12/24/17 20:18 Height: 1.57 m Weight: 98.883 kg ASA Class: 2E Mental Status: Alert & Oriented x3 Airway Class: Mallampati = 2 Dentition: Reports: Normal Dentition Thyro-Mental Finger Breadths: 3 Mouth Opening Finger Breadths: 3 ROM/Head Extension: Full Lungs: Clear to Auscultation, Normal Respiratory Effort Cardiovascular: Regular Rate, Regular Rhythm - Lab Values: Laboratory Last Values WBC 13.52 K/mm3 (3.98-10.04) H 12/24/17 20:34 RBC 4.15 M/mm3 (3.98-5.22) 12/24/17 20:34 Hgb 11.5 gm/L (11.2-15.7) 12/24/17 20:34 Hct 35.0 % (34.1-44.9) 12/24/17 20:34 MCV 84.3 fl (79.4-94.8) 12/24/17 20:34 MCH 27.7 pg (25.6-32.2) 12/24/17 20:34 MCHC 32.9 g/dl (32.2-35.5) 12/24/17 20:34 RDW Std Deviation 46.2 fL (36.4-46.3) 12/24/17 20:34 Plt Count 269 K/mm3 (182-369) 12/24/17 20:34 MPV 9.8 fl (9.4-12.3) 12/24/17 20:34 Neut % (Auto) 79.9 % (34.0-71.1) H 12/24/17 20:34 Lymph % (Auto) 12.4 % (19.3-51.7) L 12/24/17 20:34 [place] % (Auto) 6.9 % (4.7-12.5) 12/24/17 20:34 Eos % (Auto) 0.2 (0.7-5.8) L 12/24/17 20:34 Baso % (Auto) 0.1 % (0.1-1.2) 12/24/17 20:34 Neut # (Auto) 10.79 K/mm3 (1.56-6.13) H 12/24/17 20:34 Lymph # (Auto) 1.68 K/mm3 (1.18-3.74) 12/24/17 20:34 [place] # (Auto) 0.93 K/mm3 (0.24-0.36) H 12/24/17 20:34 Eos # (Auto) 0.03 K/mm3 (0.04-0.36) L 12/24/17 20:34 Baso # (Auto) 0.02 K/mm3 (0.01-0.08) 12/24/17 20:34 - Allergies Allergies/Adverse Reactions: Allergies Allergy/AdvReac Type Severity Reaction Status Date / Time Penicillins Allergy Rash Verified 10/30/16 16:28 - Blood Blood Available: No Product(s) Available: None - Anesthesia Plan Pre-Op Medication Ordered: None - Acknowledgements Anesthesia Type Planned: Spinal (with duramorph) Pt an Appropriate Candidate for the Planned Anesthesia: Yes Alternatives and Risks of Anesthesia Discussed w Pt/Guardian: Yes Pt/Guardian Understands and Agrees with Anesthesia Plan: Yes PreAnesthesia Questionnaire Respiratory History: Reports: Asthma Gastrointestinal History: Reports: GERD 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: - Past Surgical History HEENT Surgical History: Reports: Oral Surgery Female Surgical History: Reports: Other (See Below) Other Female Surgeries/Procedures: 2 - HOME MEDS Home Medications: Home Meds Iron 1 tab PO DAILY 10/30/16 [History] PNV95/Ferrous Fumarate/FA [ Tablet] 1 each PO DAILY 10/30/16 [History] Ibuprofen [IJD: Ibuprofen] 600 mg PO Q4H PRN #30 tablet 11/01/16 [Rx] Lactobacillus Combination No.4 [Probiotic] 1 cap PO DAILY 11/02/16 [History] - CURRENT (IN HOUSE) MEDS Current Meds: Current Medications Lactated Ringer's (Ringers, Lactated) 1,000 mls @ 125 mls/hr IV ASDIRECTED JR Sodium Chloride (Saline Flush) 10 ml FLUSH ASDIRECTED PRN PRN Reason: Keep Vein Open Discontinued Medications Bupivacaine HCl/Dextrose (Marcaine 0.75% Spinal) Confirm Administered Dose 2 ml .ROUTE .STK-MED ONE Stop: 12/24/17 20:18 Citric Acid/Sodium Citrate (Bicitra Solution) Confirm Administered Dose 30 ml .ROUTE .STK-MED ONE Stop: 12/24/17 20:15 Last Admin: 12/24/17 20:21 Dose: 30 ml Citric Acid/Sodium Citrate (Bicitra Solution) 30 ml PO ONETIME ONE Stop: 12/24/17 20:19 Lactated Ringer's (Ringers, Lactated) Confirm Administered Dose 1,000 mls @ as directed .ROUTE .STK-MED ONE Stop: 12/24/17 19:57 Last Admin: 12/24/17 20:35 Dose: Not Given Cefazolin Sodium/Dextrose 2 gm (/ Premix) 50 mls @ 100 mls/hr IV ONETIME ONE Stop: 12/24/17 20:47 Metoclopramide HCl (Reglan) Confirm Administered Dose 10 mg .ROUTE .STK-MED ONE Stop: 12/24/17 20:15 Last Admin: 12/24/17 20:21 Dose: 10 mg Metoclopramide HCl (Reglan) 10 mg IVPUSH ONETIME ONE Stop: 12/24/17 20:19 Morphine Sulfate (Duramorph Pf) Confirm Administered Dose 10 mg .ROUTE .STK-MED ONE Stop: 12/24/17 20:17 Ondansetron HCl (Zofran) Confirm Administered Dose 4 mg .ROUTE .STK-MED ONE Stop: 12/24/17 20:18 Oxytocin (Pitocin) Confirm Administered Dose 20 unit .ROUTE .STK-MED ONE Stop: 12/24/17 20:18
[2017-12-24] MEDS ORDERED: fentaNYL 100 MCG/2 ML SDV ONE (21:41)
[2017-12-24] MEDS ORDERED: Meperidine PF 50 MG/ML Syringe IVPUSH PRN (22:11)
[2017-12-24] MEDS ORDERED: fentaNYL 100 MCG/2 ML SDV IVPUSH PRN (22:11)
[2017-12-24] MEDS ORDERED: Ondansetron 4 MG/2 ML SDV IVPUSH PRN (22:11)
[2017-12-24] MEDS ORDERED: diphenhydrAMINE 50 MG/ML SDV IVPUSH PRN ×2 (22:11→23:44)
--- NOTE | 2017-12-24 22:11 | PCM.POSTAN ---
POST ANESTHESIA ASSESSMENT - MENTAL STATUS Mental Status: Alert, Oriented - VITAL SIGNS Pulse Rate: 88 SaO2: 94 Resp Rate: 14 Blood Pressure: 123/68 Temperature: 36.2 C - RESPIRATORY Respiratory Status: Respiratory Rate WNL, Airway Patent, O2 Saturation Stable, Supplemental Oxygen - CARDIOVASCULAR CV Status: Pulse Rate WNL, Blood Pressure Stable - GASTROINTESTINAL GI Status: No Symptoms - PAIN Pain Score: 0 - POST OP HYDRATION Hydration Status: Adequate & Stable
--- NOTE | 2017-12-24 22:12 | PCM.OPNOTE ---
- General Post-Op/Procedure Note Date of Surgery/Procedure: 12/24/17 Operative Procedure(s): Primary lower uterine segment transverse section through Pfannenstiel skin incision Findings: Uterus was enlarged, baby in nayan breech presentation. Amniotic fluid showed mild meconium staining. Uterus, fallopian tubes and ovaries otherwise within normal limits for term . Pre Op Diagnosis: 40-1/7 week intrauterine , spontaneous rupture membranes, nayan breech presentation, early labor. Post-Op Diagnosis: Same with delivery of a viable, 7 lbs. 7 oz. male infant with Apgars of 9 and 9 at 2127 hrs. on 12/24/2017. Anesthesia Technique: General ET Tube Other Anesthesia Type: Marcaine 0.5%20 mL local Primary Surgeon: Fernando Sharp Secondary Surgeon: Olena Jimenez Anesthesia Provider: Taye Fink Role of Service Department Manager: Retraction, assistance, patient safety, quality of care Fluid Replacement, Intraop: 1,500 Output, Urine Amount: 400 EBL in mLs: 1,000 Drain/Tube Comments:: Indwelling bladder catheter Complications: None Condition: Good Free Text/Narrative:: Surgery duration: 32 minutes Procedure: Patient was transferred to the room and placed in a sitting position. Spinal anesthesia was administered. After confirmation of adequate anesthesia patient was placed in a supine position with a wedge under her right side to facilitate left lateral positioning. The patient was prepped and draped in usual fashion after Whitman catheter was already placed . The anesthetic was checked and found to be adequate. 20 mL of Marcaine 0.5% was injected locally in the Pfannenstiel incision site. The Pfannenstiel skin incision was then made carried down to skin subcutaneous and fascial layers. The fascia was then undermined superiorly and inferiorly to allow for adequate operating room. The recti muscles were midline and preperitoneal fat was bluntly dissected. Peritoneal cavity was entered longitudinally. The vesicouterine peritoneum was then incised transversely and bladder flap was developed. Myometrium was incised transversely to the level of the amniotic sac. This incision was extended bilaterally in a blunt fashion. The amniotic sac was then ruptured resulting mild meconium-stained amniotic fluid. A hand is placed in the low uterine segment and the baby's head was brought forth through the incision. The baby was completely delivered using fundal pressure in a routine fashion. The nose and mouth were bulb suctioned. Baby's cord was clamped x2 cut and baby was handed off to attending journeyman pipefitter Dr Mack. Placenta was expressed after cord blood was obtained. Uterus was then exteriorized to allow for easier closure. The cervix was assessed and found to be dilated adequately to allow egress of blood. The uterus was closed in 2 layers. The first layer a running locked suture of 0 Monocryl, the second layer a running locked vertical mattress suture of 0 Monocryl. Hemostasis confirmed at this time. Sponge instrument needle counts are correct. The uterus was returned to the abdominal cavity and lateral gutters were cleared of blood. Once again sponge needle counts are correct. The anterior abdominal wall was closed with a #1 PDS suture from angle to angle. The subcutaneous area was found to be free of any bleeders. Skin was closed with a running subcuticular stitch of 3-0 Monocryl in a vertical mattress suture fashion using a Cuauhtemoc needle. Prineo mesh/glue was then applied to further approximate the incision. It should be noted that patient received 2 g of Ancef preoperatively for infection prophylaxis and had Pitocin infused after delivery of the placenta to facilitate uterine contraction. She also had sequential compression stockings in place for DVT prophylaxis. Patient was discharged from the operating room in satisfactory condition.
[2017-12-24] MEDS ORDERED: Ibuprofen 600 MG Tab PO PRN (23:15)
[2017-12-24] MEDS ORDERED: Ondansetron 4 MG/2 ML SDV IV PRN (23:44)
[2017-12-24] MEDS ORDERED: Lanolin 100% Cream 7 GM Tube TOP PRN (23:44)
[2017-12-24] MEDS ORDERED: Naloxone 0.4 MG/ML SDV IVPUSH PRN (23:44)
[2017-12-24] MEDS ORDERED: ePHEDrine 50 MG/ML SDV IVPUSH PRN (23:44)
[2017-12-24] MEDS ORDERED: Dextrose 5%-Lactated Ringers 1,000 ML IV SCH (23:44)
[2017-12-24] MEDS ORDERED: Docusate Sodium 100 MG Cap PO PRN (23:44)
[2017-12-25] MEDS: Ibuprofen 800 MG Tab PO SCH ×4 (00:12→23:47)
--- NOTE | 2017-12-25 07:34 | PCM.SN ---
- Free Text/Narrative Note: note: Patient is doing well in the period. Minimal lochia, voiding well, ambulated without problems. Nursing without concerns. Patient is afebrile, vital signs are stable Abdomen is flat, soft, uterus is below the umbilicus and is firm and nontender. Incision is dry, intact. No signs of infection, hematoma or seroma. Legs are nontender. Assessment: Postop day 1 recovery going well. Plan: Routine postop care. Will increase diet and activity. Patient may shower. We'll DC IV and SCDs when ambulating well.. Patient be discharged home within the next 48 hours.
--- NOTE | 2017-12-25 08:23 | PCM48HPAN ---
Post Anesthesia Note - EVALUATION WITHIN 48HRS OF ANESTHETIC Vital Signs in Normal Range: Yes Patient Participated in Evaluation: Yes Respiratory Function Stable: Yes Airway Patent: Yes Cardiovascular Function Stable: Yes Hydration Status Stable: Yes Pain Control Satisfactory: Yes Nausea and Vomiting Control Satisfactory: Yes Mental Status Recovered: Yes - COMMENTS/OBSERVATIONS Free Text/Narrative:: No complications noted. No further questions at this time.
[2017-12-25] MEDS: Ferrous Sulfate 325 MG Tab PO SCH (08:44)
[2017-12-25] MEDS: Prenatal Multivitamin with Calcium/Folic Acid/Iron Tab PO SCH (08:44)
[2017-12-25] MEDS: Saccharomyces Boulardii (Probiotic) 250 MG Cap PO SCH (08:44)
[2017-12-25] MEDS: Simethicone 80 MG Tab.Chew PO SCH ×4 (08:45→23:49)
[2017-12-25] MEDS ORDERED: Prenatal Multivitamin with Calcium/Folic Acid/Iron Tab PO SCH (09:00)
[2017-12-25] MEDS: Acetaminophen/oxyCODONE 325-5 MG Tab PO PRN (19:38)
[2017-12-26] MEDS: Acetaminophen/oxyCODONE 325-5 MG Tab PO PRN ×2 (02:53→11:56)
--- NOTE | 2017-12-26 07:38 | PCM.SN ---
- Free Text/Narrative Note: PP day 2: No complaints. VSS Abdomen-soft, NT, incision intact, dry Legs-NT A/P: PP day 2 normal recovery, home tomorrow.
[2017-12-26] MEDS: Ibuprofen 800 MG Tab PO SCH ×2 (08:26→17:16)
[2017-12-26] MEDS: Ferrous Sulfate 325 MG Tab PO SCH (08:28)
[2017-12-26] MEDS: Prenatal Multivitamin with Calcium/Folic Acid/Iron Tab PO SCH (08:28)
[2017-12-26] MEDS: Simethicone 80 MG Tab.Chew PO SCH ×4 (08:28→22:03)
[2017-12-26] MEDS: Saccharomyces Boulardii (Probiotic) 250 MG Cap PO SCH (08:28)
[2017-12-27] MEDS: Ibuprofen 800 MG Tab PO SCH ×2 (00:22→09:49)
--- NOTE | 2017-12-27 08:16 | PCM.DCSUM1 ---
Discharge Summary - Hospital Course Free Text/Narrative:: Caryl is a 27-year-old 3 para 3003 white female who was evaluated in labor and delivery with spontaneous rupture membranes and found to have a nayan breech presenting baby. Patient was taken to surgery on 12/24/2017 and delivered a viable, 7 lbs. 7 oz. male with Apgars of 9 and 9 at 2127 hrs. She is 40 -1/7 weeks gestational age with an GABI of 12/23/2017. patient desired nursing and attempted to nurse but decided to proceed with bottlefeeding. She is done well otherwise and is made normal recovery. Follow-up CBC was within normal limits for post operative.. She is desiring discharge home today. Diagnosis: Stroke: No - Discharge Data Discharge Date: 12/27/17 Discharge Disposition: Home, Self-Care 01 Condition: Good - Patient Summary/Data Operative Procedure(s) Performed: Primary lower uterine segment transverse section through Pfannenstiel skin incision - Patient Instructions Diet: Regular Diet as Tolerated Activity: As Tolerated (No intercourse or tampons until seen back. No lifting greater than 15 pounds or driving a car 1 week) Driving: Do Not Drive Wound/Incision Care: Keep Operative Site/Wound Site Clean and Dry Notify Provider of: Fever, Increased Pain, Swelling and Redness, Drainage, Nausea and/or Vomiting - Discharge Plan Home Medications: Home Meds Iron 1 tab PO DAILY 10/30/16 [History] PNV95/Ferrous Fumarate/FA [ Tablet] 1 each PO DAILY 10/30/16 [History] Ibuprofen [IJD: Ibuprofen] 600 mg PO Q4H PRN #30 tablet 11/01/16 [Rx] Lactobacillus Combination No.4 [Probiotic] 1 cap PO DAILY 11/02/16 [History] Acetaminophen/oxyCODONE [Percocet 325-5 MG] 2 tab PO Q4H PRN #30 tablet [Rx] Ibuprofen [Motrin] 600 mg PO Q4H PRN #30 tablet 12/27/17 [Rx] Patient Handouts: Delivery, Care After, Home Care Instructions for Mom Referrals: Fernando Sharp MD [Primary Care Provider] - (follow up with Dr. Sharp at [facility] in 2 weeks. Please call for appointment.) - Discharge Summary/Plan Comment DC Time >30 min.: No Discharge Summary/Plan Comment: Discharge instructions: 1. Discharge home 2. Diet, activity and follow-up discussed with patient. Recommend nursing diet with increased calories and calcium. 3. Precautions given concern increased pain, bleeding, temperature, signs/ symptoms of DVT/PE. 4. Medications per home medication was printed, discussed with and given to the patient. 5. Return to clinic-Dr. Sharp[facility] in 2 weeks. Diagnosis: Term nayan breech presentation -delivered by primary section on 12/24/2017. Normal recovery. Condition: Good - Patient Data Vitals - Most Recent: Last Vital Signs Temp 36.7 C 12/27/17 04:05 Pulse 85 12/27/17 04:05 Resp 16 12/27/17 03:00 BP 106/78 12/27/17 04:05 Pulse Ox 97 12/27/17 04:05 Weight - Most Recent: 98.883 kg I&O - Last 24 hours: Intake & Output 12/26/17 12/27/17 12/27/17 22:59 06:59 14:59 Intake Total 240 Balance 240 Med Orders - Current: Current Medications Diphenhydramine HCl (Benadryl) 25 mg IVPUSH Q6H PRN PRN Reason: Itching or Nausea Docusate Sodium (Colace) 100 mg PO Q12H PRN PRN Reason: Constipation Emollient Ointment (Lansinoh Hpa) 0 gm TOP ASDIRECTED PRN PRN Reason: Sore Nipples Ephedrine Sulfate (Ephedrine Sulfate) 5 mg IVPUSH SEECOMMENT PRN PRN Reason: Other Ferrous Sulfate (Ferrous Sulfate) 325 mg PO DAILY [facility] Last Admin: 12/26/17 08:28 Dose: 325 mg Ibuprofen (Motrin) 800 mg PO Q8H [facility] Last Admin: 12/27/17 00:22 Dose: 800 mg Naloxone HCl (Narcan) 0.1 mg IVPUSH SEECOMMENT PRN PRN Reason: Respiratory Depression Ondansetron HCl (Zofran) 4 mg IV Q4H PRN PRN Reason: Nausea/Vomiting Oxycodone/Acetaminophen (Percocet 325-5 Mg) 2 tab PO Q4H PRN PRN Reason: Pain (moderate 4-6) Last Admin: 12/26/17 11:56 Dose: 2 tab Prenat Multivit/[place]/Iron/Folic Ac ( Plus Iron) 1 each PO DAILY [facility] Last Admin: 12/26/17 08:28 Dose: 1 each Saccharomyces Boulardii (Florastor) 250 mg PO DAILY [facility] Last Admin: 12/26/17 08:28 Dose: 250 mg Simethicone (Simethicone) 80 mg PO PCBED [facility] Last Admin: 12/26/17 22:03 Dose: 80 mg Discontinued Medications Bupivacaine HCl (Marcaine 0.5%) Confirm Administered Dose 30 ml .ROUTE .STK-MED ONE Stop: 12/24/17 20:49 Last Admin: 12/24/17 21:23 Dose: 20 ml Bupivacaine HCl/Dextrose (Marcaine 0.75% Spinal) Confirm Administered Dose 2 ml .ROUTE .STK-MED ONE Stop: 12/24/17 20:18 Citric Acid/Sodium Citrate (Bicitra Solution) Confirm Administered Dose 30 ml .ROUTE .STK-MED ONE Stop: 12/24/17 20:15 Last Admin: 12/24/17 20:21 Dose: 30 ml Citric Acid/Sodium Citrate (Bicitra Solution) 30 ml PO ONETIME ONE Stop: 12/24/17 20:19 Last Admin: 12/25/17 07:12 Dose: Not Given Diphenhydramine HCl (Benadryl) 25 mg IVPUSH Q6H PRN PRN Reason: Pruritis Fentanyl (Sublimaze) Confirm Administered Dose 100 mcg .ROUTE .STK-MED ONE Stop: 12/24/17 21:42 Fentanyl (Sublimaze) 50 mcg IVPUSH Q5M PRN PRN Reason: Pain Lactated Ringer's (Ringers, Lactated) Confirm Administered Dose 1,000 mls @ as directed .ROUTE .STK-MED ONE Stop: 12/24/17 19:57 Last Admin: 12/24/17 20:35 Dose: Not Given Cefazolin Sodium/Dextrose 2 gm (/ Premix) 50 mls @ 100 mls/hr IV ONETIME ONE Stop: 12/24/17 20:47 Last Admin: 12/25/17 07:38 Dose: Not Given Lactated Ringer's (Ringers, Lactated) 1,000 mls @ 125 mls/hr IV ASDIRECTED [facility] Dextrose/Lactated Ringer's (Dextrose 5%-Lactated Ringers) 1,000 mls @ 125 mls/ hr IV ASDIRECTED JR Stop: 12/25/17 07:43 Last Admin: 12/25/17 06:40 Dose: 125 mls/hr Ibuprofen (Motrin) 600 mg PO Q4H PRN PRN Reason: Pain Lidocaine HCl (Xylocaine-Mpf 1%) 5 ml .ROUTE .STK-MED ONE Stop: 12/24/17 20:18 Meperidine HCl (Demerol) 12.5 mg IVPUSH ONETIME PRN PRN Reason: Shivering Metoclopramide HCl (Reglan) Confirm Administered Dose 10 mg .ROUTE .STK-MED ONE Stop: 12/24/17 20:15 Last Admin: 12/24/17 20:21 Dose: 10 mg Metoclopramide HCl (Reglan) 10 mg IVPUSH ONETIME ONE Stop: 12/24/17 20:19 Last Admin: 12/25/17 07:11 Dose: Not Given Morphine Sulfate (Duramorph Pf) Confirm Administered Dose 10 mg .ROUTE .STK-MED ONE Stop: 12/24/17 20:17 Ondansetron HCl (Zofran) Confirm Administered Dose 4 mg .ROUTE .STK-MED ONE Stop: 12/24/17 20:18 Ondansetron HCl (Zofran) 4 mg IVPUSH ONETIME PRN PRN Reason: Nausea/Vomiting Oxytocin (Pitocin) Confirm Administered Dose 20 unit .ROUTE .STK-MED ONE Stop: 12/24/17 20:18 Prenat Multivit/[place]/Iron/Folic Ac ( Plus Iron) 1 each PO DAILY [facility] Sodium Chloride (Saline Flush) 10 ml FLUSH ASDIRECTED PRN PRN Reason: Keep Vein Open
[2017-12-27 09:20] VITALS: BP 119/69
[2017-12-27] MEDS: Ferrous Sulfate 325 MG Tab PO SCH (09:50)
[2017-12-27] MEDS: Saccharomyces Boulardii (Probiotic) 250 MG Cap PO SCH (09:50)
[2017-12-27] MEDS: Simethicone 80 MG Tab.Chew PO SCH (09:50)
[2017-12-27] MEDS: Prenatal Multivitamin with Calcium/Folic Acid/Iron Tab PO SCH (09:50)
== END 2017-12-27 09:30 | disposition home or self-care (01) | DRG 540 ==
LOC: JD.OBCHECK 19:01 → JD.OB 19:06 → JD.OBCHECK 20:20
PROVIDERS: ADMIT Obstetrics & Gynecology; ATTEND Obstetrics & Gynecology
PROC: 10D00Z1 Extraction of Products of Conception, Low, Open Approach (ICD-10-PCS; principal; 2017-12-24)
PROC: 6A550ZT Pheresis of Cord Blood Stem Cells, Single (ICD-10-PCS; 2017-12-24)
DX: O32.1XX0 Maternal care for breech presentation, not applicable or unspecified (principal); Z3A.40 40 weeks gestation of pregnancy; Z37.0 Single live birth; Z88.0 Allergy status to penicillin; O99.52 Diseases of the respiratory system complicating childbirth; J45.909 Unspecified asthma, uncomplicated; O77.0 Labor and delivery complicated by meconium in amniotic fluid
CPT/HCPCS: 01961; 36415; 59025; 85025; 86592; 86850; 86900; 86901; 94762; A9270-GY; J2270; J2405; J2590; J2765; J3010; J7042

== ENCOUNTER 2023-09-25 23:47 | Inpatient (IN) | payer MEDICAID ==
[2023-09-26] MEDS ORDERED: Sodium Chloride 0.9% 10 ML Syringe FLUSH PRN ×2 (00:26→08:19)
[2023-09-26] MEDS ORDERED: Oxytocin/Lactated Ringers 30 UNIT/500 ML BAG IV SCH (00:30)
[2023-09-26 00:45] LABS: BASOPHILS ABSOLUTE AUTO 0.1 K/mm3 (0.0-0.2); BASOPHILS PERCENT AUTO 0.3 % (0.0-1.0); EOSINOPHILS ABSOLUTE AUTO 0.1 K/mm3 (0.0-0.4); EOSINOPHILS PERCENT AUTO 0.6 % (0.0-6.0); HEMATOCRIT 36.7 % (37.0-47.0); HEMOGLOBIN 12.5 gm/dl (12.0-16.0); IMMATURE GRAN ABSOLUTE AUTO 0.17 K/mm3 (0.00-0.05); IMMATURE GRAN PERCENT AUTO 1.1 % (0.0-0.4); LYMPHOCYTES ABSOLUTE AUTO 2.7 K/mm3 (1.0-4.8); LYMPHOCYTES PERCENT AUTO 17.3 % (24.0-44.0); MEAN CORPUSCULAR HEMOGLOBIN 29.6 pg (28.0-32.0); MEAN CORPUSCULAR HGB CONC 34.1 g/dl (32.0-36.0); MEAN CORPUSCULAR VOLUME 86.8 fl (83.0-99.0); MEAN PLATELET VOLUME 9.3 fl (9.4-12.3); MONOCYTES ABSOLUTE AUTO 1.1 K/mm3 (0.0-0.8); NEUTROPHILS ABSOLUTE AUTO 11.3 K/mm3 (1.8-7.7); NEUTROPHILS PERCENT AUTO 73.7 % (41.0-71.0); PLATELET COUNT,PLT 224 K/mm3 (150-400); RED BLOOD CELL COUNT 4.23 M/mm3 (4.10-5.30); WHITE BLOOD CELL COUNT,WBC 15.36 K/mm3 (3.9-11.3)
[2023-09-26] MEDS: Lactated Ringers 1,000 ML IV SCH (01:01)
[2023-09-26] MEDS: Azithromycin 500 MG in Sodium Chloride 0.9% 250 ML IV ONE (01:04)
[2023-09-26] MEDS ORDERED: Oxytocin 10 Units/1 ML SDV ONE (01:07)
[2023-09-26] MEDS ORDERED: Ketorolac 30 MG/ML SDV ONE (01:07)
[2023-09-26] MEDS ORDERED: Ondansetron 4 MG/2 ML SDV ONE (01:07)
[2023-09-26] MEDS ORDERED: Lactated Ringers 2,000 ML ONE (01:07)
[2023-09-26] MEDS ORDERED: Morphine PF 10 MG/10 ML SDV ONE (01:07)
[2023-09-26] MEDS: Citric Acid/Sodium Citrate Solution 30 ML Cup PO ONE (01:09)
[2023-09-26] MEDS: Metoclopramide 10 MG/2 ML SDV IVPUSH ONE (01:10)
[2023-09-26] MEDS ORDERED: ceFAZolin 2 GM Vial ONE (01:11)
[2023-09-26] MEDS ORDERED: Ondansetron 4 MG/2 ML SDV IVPUSH PRN (01:18)
[2023-09-26] MEDS ORDERED: diphenhydrAMINE 50 MG/ML SDV IVPUSH PRN ×2 (01:18→08:07)
[2023-09-26] MEDS ORDERED: fentaNYL 100 MCG/2 ML SDV IVPUSH PRN (01:18)
[2023-09-26] MEDS ORDERED: Meperidine 50 MG/ML Vial IVPUSH PRN (01:18)
[2023-09-26] MEDS ORDERED: Dexamethasone 4 MG/ML SDV ONE (01:47)
[2023-09-26] MEDS: Bupivacaine 0.5% 30 ML SDV ONE (01:50)
[2023-09-26] MEDS ORDERED: Naloxone 0.4 MG/ML SDV IVPUSH PRN (08:07)
[2023-09-26] MEDS ORDERED: ePHEDrine 50 MG/ML SDV IVPUSH PRN (08:07)
[2023-09-26] MEDS ORDERED: Dextrose 5%-Lactated Ringers 1,000 ML IV SCH (08:15)
[2023-09-26] MEDS ORDERED: Acetaminophen/oxyCODONE 325-5 MG Tab PO PRN (08:19)
[2023-09-26] MEDS: Ketorolac 30 MG/ML SDV IVPUSH PRN (09:07)
[2023-09-26] MEDS: ceFAZolin 1 GM in Sodium Chloride 0.9% 50 ML IV ONE (20:21)
[2023-09-26] MEDS: ceFAZolin 2 GM in Sodium Chloride 0.9% 50 ML IV ONE (20:22)
[2023-09-26] MEDS: Dextrose 5%-Lactated Ringers 1,000 ML ONE (20:23)
[2023-09-26] MEDS: Azithromycin 500 MG Vial ONE (20:23)
[2023-09-26] MEDS ORDERED: Magnesium Hydroxide 400 MG/5 ML Susp 30 ML Cup PO PRN (21:00)
[2023-09-27 06:34] LABS: HEMOGLOBIN 11.1 gm/dl (12.0-16.0); MEAN CORPUSCULAR HEMOGLOBIN 28.8 pg (28.0-32.0); MEAN CORPUSCULAR HGB CONC 32.6 g/dl (32.0-36.0); MEAN CORPUSCULAR VOLUME 88.1 fl (83.0-99.0); MEAN PLATELET VOLUME 9.3 fl (9.4-12.3); PLATELET COUNT,PLT 222 K/mm3 (150-400); RED BLOOD CELL COUNT 3.86 M/mm3 (4.10-5.30); WHITE BLOOD CELL COUNT,WBC 15.97 K/mm3 (3.9-11.3)
[2023-09-27] MEDS: Ibuprofen 600 MG Tab PO PRN (12:56)
[2023-09-27] MEDS: Acetaminophen/oxyCODONE 325-5 MG Tab PO PRN (15:33)
[2023-09-27 17:32] VITALS: BP 129/81; PULSE 69
== END 2023-09-27 18:10 | disposition home or self-care (01) | DRG 788 ==
LOC: JD.OBCHECK 23:47 → JD.OB 23:51 → JD.OBCHECK 09-26 00:25 → JD.OB 09-26 00:26
PROVIDERS: ADMIT Obstetrics & Gynecology; ATTEND Obstetrics & Gynecology
PROC: 10D00Z1 Extraction of Products of Conception, Low, Open Approach (ICD-10-PCS; principal; 2023-09-26 01:30)
DX: O32.2XX0 Maternal care for transverse and oblique lie, not applicable or unspecified (principal); Z88.0 Allergy status to penicillin; Z37.0 Single live birth; Z3A.39 39 weeks gestation of pregnancy; O34.211 Maternal care for low transverse scar from previous cesarean delivery; O99.214 Obesity complicating childbirth
CPT/HCPCS: 36415; 59025; 85025; 85027; 86592; 86850; 86900; 86901; 94762; A9270-GY; J0456; J0665; J0690; J1100; J1885; J2274; J2405; J2590; J2765; J7050; J7120